=== PATIENT | female | born 1985 | race Two or more races ===

== ENCOUNTER 2016-12-10 18:55 | Inpatient (IN) | payer OTHER ==
--- NOTE | 2016-12-10 19:21 | EDPHY ---
H & P Stated Complaint: CP Time Seen by Provider: 12/10/16 19:09 HPI/ROS: CHIEF COMPLAINT: Chest pain HISTORY OF PRESENT ILLNESS: The patient presents to the emergency department with complaints of chest pain after a stressful event at work. She reportedly developed symptoms at 4 o'clock which lasted less than 1 hour. She had some slight paresthesias in her left arm. She has no prior history of chest pain. The patient has a history of hypertension or hyperlipidemia. The patient does have a history of borderline diabetes. The patient does report her mother in her 50s of unknown disease. The patient denies any history of exertional chest pain, shortness of breath, asymmetric calf pain or swelling, recent surgery or prolonged immobilization. The patient also specifically denies pleuritic chest pain. REVIEW OF SYSTEMS: A comprehensive 10 point review of systems is otherwise negative aside from elements mentioned in the history of present illness. Source: Patient - Personal History LMP (Females 10-55): 15-21 Days Ago Current Tetanus/Diphtheria Vaccine: Yes Current Tetanus Diphtheria and Acellular Pertussis (TDAP): Yes - Medical/Surgical History Hx Asthma: No Hx Chronic Respiratory Disease: No Hx Diabetes: No Hx Cardiac Disease: No Hx Renal Disease: No Hx Cirrhosis: No Hx Alcoholism: No Hx HIV/AIDS: No Hx Splenectomy or Spleen Trauma: No Other PMH: hypothyroid, c-sectioin - Social History Smoking Status: Never smoked - Physical Exam Exam: General Appearance: Alert, no distress Eyes: Pupils equal and round no pallor or injection ENT, Mouth: Mucous membranes moist Respiratory: There are no retractions, lungs are clear to auscultation Cardiovascular: Regular rate and rhythm Gastrointestinal: Abdomen is soft and nontender, no masses, bowel sounds normal Neurological: A&O, normal motor function, normal sensory exam, normal cranial nerves Skin: Warm and dry, no rashes Musculoskeletal: Neck is supple nontender Extremities: symmetrical, full range of motion Psychiatric: Patient is oriented X 3, there is no agitation Constitutional: Initial Vital Signs Temperature (C) 36.9 C 12/10/16 19:05 Heart Rate 77 12/10/16 19:05 Respiratory Rate 16 12/10/16 19:05 Blood Pressure 127/72 H 12/10/16 19:05 O2 Sat (%) 100 12/10/16 19:05 O2 Delivery Mode Room Air Allergies/Adverse Reactions: No Known Allergies Allergy (Verified 12/10/16 19:03) Home Medications: Medication Instructions Recorded Levothyroxine [Synthroid 112 mcg 112 mcg PO DAILY06 12/10/16 (*)] Medical Decision Making - Diagnostics EKG Interpretation: EKG: Complete interpretation has been separately recorded in the [facility] archive. Summary impression: Sinus rhythm, rate 66 Imaging Results: Imaging Impressions Chest X-Ray 12/10/16 19:39 Impression: The chest is negative for acute cardiopulmonary abnormality. ED Course/Re-evaluation: The patient presents to the ED with chest pain after stressful situation at work. She is currently asymptomatic. The patient has a history of borderline hyperlipidemia and uncertain family medical history surrounding a maternal . The patient is noted to have a normal EKG in the ED. The patient's initial troponin came back indeterminately elevated at 0.137. Given the patient's history of reported early cardiac in a first-degree relative, I do feel she should be admitted to the hospital for observation and further cardiac evaluation. Consultation was made with Dr. Rivera from the hospitalist service who will refer the patient this evening. The patient has remained hemodynamically stable and chest pain-free throughout her stay in the emergency department. Plans for hospital admission discussed with patient through respiratory assistant. Differential Diagnosis: Differential diagnosis considered includes acute coronary syndrome, pericarditis , nonischemic cardiomyopathy, pulmonary embolism - Data Points Laboratory Results: Laboratory Results 12/10/16 20:00 12/10/16 20:00 12/10/16 12/10/16 12/10/16 20:00 20:00 20:00 WBC RBC Hgb Hct MCV MCH MCHC RDW Plt Count MPV Neut % (Auto) Lymph % (Auto) [place] % (Auto) Eos % (Auto) Baso % (Auto) Nucleat RBC Rel Count Absolute Neuts (auto) Absolute Lymphs (auto) Absolute Monos (auto) Absolute Eos (auto) Absolute Basos (auto) Absolute Nucleated RBC Immature Gran % Immature Gran # D-Dimer 0.30 ug/mLFEU ug/mLFEU (0.00-0.50) Sodium 139 mEq/L mEq/L (134-144) Potassium 3.9 mEq/L mEq/L (3.5-5.2) Chloride 103 mEq/L mEq/L (97-110) Carbon Dioxide 24 mEq/l mEq/l (22-31) Anion Gap 12 mEq/L mEq/L (8-16) BUN 13 mg/dL mg/dL (7-23) Creatinine 0.8 mg/dL mg/dL (0.6-1.0) Estimated GFR > 60 Glucose 86 mg/dL mg/dL (70-100) Calcium 8.9 mg/dL mg/dL (8.5-10.4) Troponin I 0.127 ng/mL H ng/mL (0-0.034) TSH Pending 12/10/16 20:00 WBC 8.16 10^3/uL 10^3/uL (3.80-9.50) RBC 4.79 10^6/uL 10^6/uL (4.18-5.33) Hgb 10.9 g/dL L g/dL (12.6-16.3) Hct 33.9 % L % (38.0-47.0) MCV 70.8 fL L fL (81.5-99.8) MCH 22.8 pg L pg (27.9-34.1) MCHC 32.2 g/dL L g/dL (32.4-36.7) RDW 16.8 % H % (11.5-15.2) Plt Count 342 10^3/uL 10^3/uL (150-400) MPV 9.4 fL fL (8.7-11.7) Neut % (Auto) 67.3 % % (39.3-74.2) Lymph % (Auto) 23.4 % % (15.0-45.0) [place] % (Auto) 6.5 % % (4.5-13.0) Eos % (Auto) 2.1 % % (0.6-7.6) Baso % (Auto) 0.5 % % (0.3-1.7) Nucleat RBC Rel Count 0.0 % % (0.0-0.2) Absolute Neuts (auto) 5.49 10^3/uL 10^3/uL (1.70-6.50) Absolute Lymphs (auto) 1.91 10^3/uL 10^3/uL (1.00-3.00) Absolute Monos (auto) 0.53 10^3/uL 10^3/uL (0.30-0.80) Absolute Eos (auto) 0.17 10^3/uL 10^3/uL (0.03-0.40) Absolute Basos (auto) 0.04 10^3/uL 10^3/uL (0.02-0.10) Absolute Nucleated RBC 0.00 10^3/uL 10^3/uL (0-0.01) Immature Gran % 0.2 % % (0.0-1.1) Immature Gran # 0.02 10^3/uL 10^3/uL (0.00-0.10) D-Dimer Sodium Potassium Chloride Carbon Dioxide Anion Gap BUN Creatinine Estimated GFR Glucose Calcium Troponin I TSH Medications Given: Discontinued Medications Aspirin (Aspirin) 324 mg PO EDNOW ONE Stop: 12/10/16 20:45 Last Admin: 12/10/16 20:50 Dose: 324 mg Departure - Departure Disposition: [facility] ([place], [place]) Inpatient Acute Clinical Impression: Chest pain, Cardiac enzymes elevated Condition: Good
--- NOTE | 2016-12-10 19:27 | CPEKG ---
Heart Rate: 66 RR Interval: 909 P-R Interval: 168 QRSD Interval: 84 QT Interval: 400 QTC Interval: 420 P [place]: 51 QRS [place]: 33 T Wave [place]: 39 EKG Severity - NORMAL ECG - EKG Impression: SINUS RHYTHM Electronically Signed By: Darryl Roy 10-Dec-2016 20:16:29
[2016-12-10 20:10] LABS: % IMMATURE GRANULYOCYTES 0.2 % (0.0-1.1); ABSOLUTE IMMATURE GRANULOCYTES 0.02 10^3/uL (0.00-0.10); ADD DIFF? NO; ADD MORPH? NO; ADD SCAN? NO; ATYPICAL LYMPHOCYTE FLAG 0 (0-99); FRAGMENT RBC FLAG 20 (0-99); HEMATOCRIT 33.9 % (38.0-47.0); HEMOGLOBIN 10.9 g/dL (12.6-16.3); LEFT SHIFT FLG 0 (0-99); LIPEMIA HEMOLYSIS FLAG 80 (0-99); MEAN CELL HEMOGLOBIN 22.8 pg (27.9-34.1); MEAN CELL HEMOGLOBIN CONCENTR. 32.2 g/dL (32.4-36.7); MEAN CELL VOLUME 70.8 fL (81.5-99.8); MEAN PLATELET VOLUME 9.4 fL (8.7-11.7); PLATELET CLUMPS FLAG 10 (0-99); PLATELET COUNT 342 10^3/uL (150-400); RED BLOOD CELL COUNT 4.79 10^6/uL (4.18-5.33); RED CELL DISTRIBUTION WIDTH 16.8 % (11.5-15.2)
[2016-12-10 20:30] LABS: ANION GAP 12 mEq/L (8-16); CALCIUM 8.9 mg/dL (8.5-10.4); CARBON DIOXIDE 24 mEq/l (22-31); CHLORIDE 103 mEq/L (97-110); CREATININE 0.8 mg/dL (0.6-1.0); GLOMERULAR FILTRATION RATE > 60; GLUCOSE 86 mg/dL (70-100); POTASSIUM 3.9 mEq/L (3.5-5.2); SODIUM 139 mEq/L (134-144)
[2016-12-10 20:42] LABS: TROPONIN I 0.127 ng/mL (0-0.034)
[2016-12-10] MEDS ORDERED: ASPIRIN 81 MG CHEWABLE TAB PO ONE (20:44)
[2016-12-10] MEDS ORDERED: ACETAMINOPHEN 325 MG TAB PO PRN (23:18)
[2016-12-10] MEDS ORDERED: ONDANSETRON 4 MG/2 ML VIAL IVP PRN (23:18)
[2016-12-10] MEDS ORDERED: ONDANSETRON DISINTEGRATING 4 MG TAB PO PRN (23:18)
--- NOTE | 2016-12-10 23:43 | PDGENHP ---
History and Physical - Chief Complaint chest pain - History of Present Illness Patient is a 31-year-old female with history of hyperlipidemia, hypothyroidism and prediabetes who presents to the ED with complaint of chest pain. Patient states she was at work around 4 pm today and was having a stressful argument/ discussion with co-worker when she suddenly developed left sided chest heaviness and pain. She described the pain as a dull constant throbbing, associated with palpitations and shortness of breath. Shortly after experiencing pain she also developed numbness and discomfort radiating into her left arm. She denies any nausea or diaphoresis. Patient also denies any recent fevers, chills, headache, dizziness, coughing, congestion, orthopnea, PND , recent travel or lower extremity edema. She has never experienced pain like this in her chest before. She also has never had cardiac workup previously, although she does have a positive family history of her mother dying of an [place] in her 50s. On arrival to the ED patient was afebrile and hemodynamically stable, but was still experiencing pain (total about 2 hours of symptom). Labs revealed normal CBC and BMP, but troponin was elevated at 0.1. EKG showed faint ST depressions laterally and inferior Q-waves no priors to compare. Chest x-ray was unremarkable and D-dimer was negative. She was given full-dose aspirin and admitted to the hospital service for further management. History Information - Allergies/Home Medication List Allergies/Adverse Reactions: No Known Allergies Allergy (Verified 12/10/16 19:03) Home Medications: Levothyroxine [Synthroid 112 mcg (*)] 112 mcg PO DAILY06 12/10/16 [Last Taken ] I have personally reviewed and updated: family history, medical history, social history, surgical history - Past Medical History Additional medical history: hypothyroidism. Hyperlipidemia - Surgical History Additional surgical history: - Family History Additional family history: M: in her 50s from [place] - Social History Smoking Status: Never smoked Alcohol Use: None Drug Use: None Additional social history: Originally from [place], lives in [place] with her young daughter Review of Systems ROS: 10pt was reviewed & negative except for what was stated in HPI & below Physical Exam Temp Pulse Resp BP Pulse Ox 36.6 C 67 18 107/61 100 12/10/16 21:00 12/10/16 21:00 12/10/16 21:00 12/10/16 21:00 12/10/16 21:00 O2 (L/minute) 2 Constitutional: no apparent distress, appears nourished, not in pain Eyes: PERRL, anicteric sclera, EOMI Ears, Nose, Mouth, Throat: moist mucous membranes, hearing normal, ears appear normal, no oral mucosal ulcers Cardiovascular: regular rate and rhythym, no murmur, rub, or gallop, pulses symmetric bilaterally, No JVD, No edema Peripheral Pulses: 2+: dorsalis-pedis (R), dorsalis-pedis (L) Respiratory: no respiratory distress, no rales or rhonchi, clear to auscultation Gastrointestinal: normoactive bowel sounds, soft, non-tender abdomen, no palpable masses, No tenderness, No guarding, No rebound Genitourinary: no bladder fullness, no bladder tenderness Skin: warm, normal color, no rashes or abrasions, no fluctuance, no induration, No mottled Musculoskeletal: full muscle strength, no muscle tenderness, normal joint ROM, no joint effusions Neurologic: AAOx3, sensation intact bilaterally, CN II-XII Intact, No weakness, No numbness Psychiatric: interacting appropriately, not anxious, not encephalopathic, thought process linear Lab Data & Imaging Review 12/10/16 20:00 12/10/16 20:00 WBC 8.16 10^3/uL (3.80-9.50) 12/10/16 20:00 RBC 4.79 10^6/uL (4.18-5.33) 12/10/16 20:00 Hgb 10.9 g/dL (12.6-16.3) L 12/10/16 20:00 Hct 33.9 % (38.0-47.0) L 12/10/16 20:00 MCV 70.8 fL (81.5-99.8) L 12/10/16 20:00 MCH 22.8 pg (27.9-34.1) L 12/10/16 20:00 MCHC 32.2 g/dL (32.4-36.7) L 12/10/16 20:00 RDW 16.8 % (11.5-15.2) H 12/10/16 20:00 Plt Count 342 10^3/uL (150-400) 12/10/16 20:00 MPV 9.4 fL (8.7-11.7) 12/10/16 20:00 Neut % (Auto) 67.3 % (39.3-74.2) 12/10/16 20:00 Lymph % (Auto) 23.4 % (15.0-45.0) 12/10/16 20:00 [place] % (Auto) 6.5 % (4.5-13.0) 12/10/16 20:00 Eos % (Auto) 2.1 % (0.6-7.6) 12/10/16 20:00 Baso % (Auto) 0.5 % (0.3-1.7) 12/10/16 20:00 Nucleat RBC Rel Count 0.0 % (0.0-0.2) 12/10/16 20:00 Absolute Neuts (auto) 5.49 10^3/uL (1.70-6.50) 12/10/16 20:00 Absolute Lymphs (auto) 1.91 10^3/uL (1.00-3.00) 12/10/16 20:00 Absolute Monos (auto) 0.53 10^3/uL (0.30-0.80) 12/10/16 20:00 Absolute Eos (auto) 0.17 10^3/uL (0.03-0.40) 12/10/16 20:00 Absolute Basos (auto) 0.04 10^3/uL (0.02-0.10) 12/10/16 20:00 Absolute Nucleated RBC 0.00 10^3/uL (0-0.01) 12/10/16 20:00 Immature Gran % 0.2 % (0.0-1.1) 12/10/16 20:00 Immature Gran # 0.02 10^3/uL (0.00-0.10) 12/10/16 20:00 D-Dimer 0.30 ug/mLFEU (0.00-0.50) 12/10/16 20:00 Sodium 139 mEq/L (134-144) 12/10/16 20:00 Potassium 3.9 mEq/L (3.5-5.2) 12/10/16 20:00 Chloride 103 mEq/L (97-110) 12/10/16 20:00 Carbon Dioxide 24 mEq/l (22-31) 12/10/16 20:00 Anion Gap 12 mEq/L (8-16) 12/10/16 20:00 BUN 13 mg/dL (7-23) 12/10/16 20:00 Creatinine 0.8 mg/dL (0.6-1.0) 12/10/16 20:00 Estimated GFR > 60 12/10/16 20:00 Glucose 86 mg/dL (70-100) 12/10/16 20:00 Calcium 8.9 mg/dL (8.5-10.4) 12/10/16 20:00 Troponin I 0.127 ng/mL (0-0.034) H 12/10/16 20:00 Visualized and Interpreted Chest x-ray results: Yes Chest X-Ray results: no infiltrate, normal Visualized and Interpreted EKG results: Yes EKG Interpretation: Positive for: normal sinsus rhythm, ST depression (slight st depressions in v4-v5, q wave in III, aVF) Assessment & Plan Assessment: Patient is a 31-year-old female with history of hyper hypothyroidism, hyperlipidemia and positive premature cardiac family history presents to the ED with complaint chest pain radiating into her left arm. Initial ED evaluation reveals elevated troponin at 0.[address] depressions in her EKG. Plan: # NSTEMI Patient presented to the ED with a episode of distinct left-sided chest pain, radiating into her left arm, associated with dyspnea and palpitations. Given this description of symptoms, concern for ACS high. Initial EKG shows Q-waves in inferior leads and faint ST depressions laterally. This is consistent with an NSTEMI. She was given a full-dose aspirin, as well as a dose of therapeutic Lovenox. Will follow serial EKGs, troponins q6, check TTE in consult Cardiology in a.m. will also check TSH, lipid panel, initiate aspirin and statin therapy. # hypothyroidism Check TSH and resume home Synthroid dose. # hyperlipidemia Check lipid panel and initiate statin. # dispo: Admit to observation status for chest pain and mildly elevated troponin # gen NPO DVT Ppx: obs, low risk Full code
--- NOTE | 2016-12-11 00:57 | CPEKG ---
Heart Rate: 63 RR Interval: 952 P-R Interval: 180 QRSD Interval: 84 QT Interval: 432 QTC Interval: 443 P [place]: 45 QRS [place]: 55 T Wave [place]: 63 EKG Severity - NORMAL ECG - EKG Impression: SINUS RHYTHM Electronically Signed By: Pepe Marcus 12-Dec-2016 08:02:05
[2016-12-11] MEDS: ENOXAPARIN 60 MG/0.6 ML SYR SC SCH ×2 (01:03→15:08)
[2016-12-11 06:56] LABS: % IMMATURE GRANULYOCYTES 0.1 % (0.0-1.1); ABSOLUTE IMMATURE GRANULOCYTES 0.01 10^3/uL (0.00-0.10); ADD DIFF? NO; ADD MORPH? NO; ADD SCAN? NO; ATYPICAL LYMPHOCYTE FLAG 10 (0-99); FRAGMENT RBC FLAG 20 (0-99); HEMATOCRIT 35.4 % (38.0-47.0); HEMOGLOBIN 11.2 g/dL (12.6-16.3); LEFT SHIFT FLG 0 (0-99); LIPEMIA HEMOLYSIS FLAG 80 (0-99); MEAN CELL HEMOGLOBIN 22.6 pg (27.9-34.1); MEAN CELL HEMOGLOBIN CONCENTR. 31.6 g/dL (32.4-36.7); MEAN CELL VOLUME 71.5 fL (81.5-99.8); MEAN PLATELET VOLUME 9.8 fL (8.7-11.7); PLATELET CLUMPS FLAG 10 (0-99); PLATELET COUNT 343 10^3/uL (150-400); RED BLOOD CELL COUNT 4.95 10^6/uL (4.18-5.33); RED CELL DISTRIBUTION WIDTH 17.1 % (11.5-15.2)
[2016-12-11 07:05] LABS: INR 1.01 (0.83-1.16); PROTIME(PATIENT) 13.2 SEC (12.0-15.0)
[2016-12-11 07:06] LABS: APTT 28.8 SEC (23.0-38.0)
[2016-12-11 07:07] LABS: ANION GAP 9 mEq/L (8-16); CALCIUM 8.9 mg/dL (8.5-10.4); CARBON DIOXIDE 26 mEq/l (22-31); CHLORIDE 105 mEq/L (97-110); CHOLESTEROL 214 mg/dL (140-200); CHOLESTEROL/HDL RATIO 6.69 RATIO (1.00-4.44); CREATININE 0.7 mg/dL (0.6-1.0); GLOMERULAR FILTRATION RATE > 60; GLUCOSE 86 mg/dL (70-100); HIGH DENSITY LIPOPROTEIN 32 mg/dL (40-80); LDL/HDL RATIO 4.66 RATIO (1.00-3.22); LOW DENSITY LIPOPROTEIN 149 mg/dL (70-100); MAGNESIUM 2.3 mg/dL (1.6-2.3); NON-HIGH DENSITY LIPOPROTEIN 182 mg/dL (90-129); POTASSIUM 4.1 mEq/L (3.5-5.2); SODIUM 140 mEq/L (134-144); TRIGLYCERIDE 169 mg/dL (35-135); VERY LOW DENSITY LIPOPROTEINS 33 mg/dL (8-25)
--- NOTE | 2016-12-11 10:11 | ECHO ---
[id number] + + [address] : : [place] [address] : : [phone] + + Adult Echocardiographic Report + + :Name: DAIANADWAYNE HOLLAND SOLEDADStudy Date: 12/11/2016 08:39 AM : : Hospital Admission Number: [id number] ient Location: ER: :: 1985 Gender: Female Johann ght: 59 in : :Age: 31 yrs Race: [facility] ght: 147 lb : :Reason For Study: Eval LV Fx : : BSA : 1.6 meters2 : :History: Chest pain, Positive Troponins : + + MMode/2D Measurements \T\ Calculations IVSd: 0.81 cm LVIDd: 4.1 cm FS: 37.5 % Ao root diam: 2.6 cm LVPWd: 0.92 cm LVIDs: 2.5 cm EDV(Teich): 73.4 ml ACS: 1.8 cm ESV(Teich): 23.4 ml LA dimension: 2.5 cm EF(Teich): 68.0 % Normal Measurement Values: + + :LVIDd (3.5-5.7cm) IVSd (0.6-1.1cm) LVPWd (0.6-1.1cm) Aortic Root (2.0-3.7cm)Left Atrium (1.5-4.0cm): :LV Vol(d) (76-115ml) LV Vol(s) (29-48ml) Ejec Fraction (50-65%)PV [place] (0.6- 1.2m/s) TV [place] (0.4-1.0m/s) : :MV E [place] (0.8-1.0m/s)MV A [place] (0.3-1.0m/s)LVOT [place] (0.7-1.2m/s) Asc Ao Len[place] ( 0.9-1.8m/s) : + + Doppler Measurements \T\ Calculations MV E max lencho: Ao V2 max: LV V1 max: PA V2 max: 89.3 cm/sec 114.0 cm/sec 85.9 cm/sec 80.1 cm/sec MV A max lencho: Ao max P.2 mmHgLV V1 max PG: PA max P.5 cm/sec 3.0 mmHg 2.6 mmHg MV E/A: 2.3 TR max lencho: 239.0 cm/sec TR max P.8 mmHg RAP systole: 5.0 mmHg RVSP(TR): 27.8 mmHg Left Ventricle The left ventricle is normal in size. There is normal left ventricular wall thickness. The left ventricular ejection fraction is normal. Ejection Fraction = 68%. There are no obvious left ventricular wall motion abnormalities. Right Ventricle The right ventricle is normal in size and function. Atria The left atrial size is normal. Right atrial size is normal. Mitral Valve The mitral valve is normal in structure and function. There is no mitral valve stenosis. There is no mitral regurgitation noted. Tricuspid Valve Normal tricuspid valve. There is trace tricuspid regurgitation. Right ventricular systolic pressure is normal. Aortic Valve The aortic valve is normal in structure and function. The aortic valve is trileaflet. There is no aortic stenosis. There is no aortic insufficiency. Pulmonic Valve The pulmonic valve is normal in structure and function. There is no pulmonic valvular regurgitation. Great Vessels The aortic root is normal size. Pericardium/Pleural There is no pericardial effusion. Conclusion A complete two-dimensional transthoracic echocardiogram was performed (2D, M-mode, Doppler and color flow Doppler). The left ventricular ejection fraction is normal. Ejection Fraction = 68%. There are no obvious left ventricular wall motion abnormalities. The left atrial size is normal. Right atrial size is normal. The mitral valve is normal in structure and function. There is trace tricuspid regurgitation. Right ventricular systolic pressure is normal. The aortic valve is normal in structure and function. The aortic valve is trileaflet. There is no pericardial effusion. Final Reading Physician: Leo Shah signed on 12/11/2016 10:10 AM Ordering Physician: Estee Anderson Performed By: Avery Abarca, CS
--- NOTE | 2016-12-11 10:20 | HOSPPROG ---
Hospitalist Progress Note Assessment/Plan: # CP/elev trop - discussed with cards - anticipate cath today - received asa and lovenox last night - on lipitor for LDL 149 # microcytic anemia - check Fe studies Subjective: CP better, still slightly bothersome Objective: Vital Signs Temp Pulse Resp BP Pulse Ox 37 C 84 18 96/58 L 95 12/11/16 04:00 12/11/16 04:00 12/11/16 04:00 12/11/16 04:00 12/11/16 04:00 Laboratory Results 12/11/16 06:45 12/11/16 06:45 PT 13.2 SEC (12.0-15.0) 12/11/16 06:45 INR 1.01 (0.83-1.16) 12/11/16 06:45 discussed with Archie - possible cath ecg personally reviewed echo and cxr reviewed - Physical Exam Constitutional: no apparent distress, appears nourished Cardiovascular: regular rate and rhythym, no murmur, rub, or gallop Respiratory: no respiratory distress, no rales or rhonchi, clear to auscultation Gastrointestinal: normoactive bowel sounds, soft, non-tender abdomen, no palpable masses ICD10 Worksheet Patient Problems: Problems Problem Status Onset Chest pain Acute Cardiac enzymes elevated Acute
[2016-12-11 10:50] LABS: % SATURATION 5 % (20-55); TOTAL IRON BINDING CAPACITY 455 ug/dL (260-490)
[2016-12-11] MEDS ORDERED: diphenhydrAMINE 25 MG CAP PO ONE ×2 (10:59→11:47)
[2016-12-11] MEDS ORDERED: TEMAZEPAM 15 MG CAP PO PRN (10:59)
[2016-12-11] MEDS ORDERED: NITROGLYCERIN 0.4 MG BTL SL PRN (10:59)
[2016-12-11] MEDS ORDERED: DIAZEPAM 5 MG TAB PO ONE (10:59)
[2016-12-11] MEDS ORDERED: ASPIRIN EC 325 MG TAB PO ONE ×2 (10:59→11:47)
[2016-12-11] MEDS ORDERED: NS 1,000 ML IV SCH (11:00)
[2016-12-11 11:16] LABS: FERRITIN - BCH 6.7 ng/mL (6.2-264.0)
[2016-12-11] MEDS ORDERED: LIDOCAINE 1% 300 MG/30 ML SDV ONE (11:34)
[2016-12-11] MEDS ORDERED: IOPAMIDOL (ISOVUE-370) 150 ML BTL IV ONE (11:35)
[2016-12-11] MEDS ORDERED: MIDAZOLAM 2 MG/2 ML VIAL ONE (11:35)
[2016-12-11] MEDS ORDERED: fentaNYL 100 MCG/2 ML INJ ONE (11:35)
[2016-12-11] MEDS ORDERED: HEPARIN 10,000 UNIT/10 ML MDV ONE (11:35)
[2016-12-11] MEDS ORDERED: VERAPAMIL 5 MG/2 ML VIAL ONE (11:35)
[2016-12-11] MEDS ORDERED: FAMOTIDINE 20 MG TAB ONE (11:47)
[2016-12-11] MEDS ORDERED: DIAZEPAM 5 MG TAB ONE (11:48)
[2016-12-11] MEDS ORDERED: ATROPINE SULFATE 1 MG/10 ML SYR IVP PRN (13:03)
--- NOTE | 2016-12-11 13:03 | PDDXCAT ---
Diagnostic Cath Note - . Date: 12/11/16 Product Craftsman: Pancho Indication: other (Chest pain with elevated troponins) - Procedure Access: right groin Procedure: left heart catheterization, coronary angiography, left ventriculogram - Materials Left Heart Cath size: 6F Left Heart Cath materials: standard multipack (JL4, JR4, pigtail) - Findings-Left Heart Catheterization LM: Normal LAD: Normal LCX: Normal RCA: Dominant: Normal EDP: 12 mm of mercury LVEF: 65% Wall motion: Normal Complications: Inability to access right radial artery Estimated blood loss: <50ml Closure method: manual pressure Assessment: 1. Angiographically normal coronary arteries. 2. Normal left ventricular systolic function with normal filling pressures. 3. Chest pain syndrome associated with elevated troponins Plan: Query Takutsubo's CM versus early markos-pericarditis. NSAIDS. Clinical follow up. Patient Problems: Problems Problem Status Onset Chest pain Acute Cardiac enzymes elevated Acute
[2016-12-11] MEDS ORDERED: ATROPINE SULFATE 1 MG/10 ML SYR ONE (13:17)
--- NOTE | 2016-12-11 13:19 | GCON ---
[f rep st] CONSULTATION CARDIOLOGY CONSULTATION. REASON FOR CONSULTATION: Chest pressure, elevated troponin levels. HISTORY OF PRESENT ILLNESS: The patient is a 31-year-old female. She is Citizen [place]-speaking only, she is being seen with a professional fiscal assistant. She reports, last evening, having chest pre ssure, starting midsternal, reporting it as a tight belt sensation over the left arm, with radiation into her left arm, she reported starting around 6 o'clock last evening, reporting she was at work. Her bailer tenders supervisor gave an aspirin. She rested for a few hours with no relief in symptoms. At that po int, she was encouraged by her bailer tenders supervisor and brought to [facility] for further evalua tion. On arrival, patient reports that she did receive a sublingual nitroglycerin, which had stoppe d the chest pressure, but she continues to have some mild tingling in her left arm. Initial electro cardiogram done in the ED did show sinus rhythm, normal axis, with nonspecific Q-waves in inferior l ochoa, potentially mild ST elevation of less than a millimeter in inferior leads. She had a troponin level drawn, which initially came back at 0.127. D-dimer was done, which was 0.30, within normal l imits. She has been remaining on telemetry, waiting for a PCU bed since overnight. She has had cyc le troponins, with most recent one done at 6:45 this morning at 0.140. She informs me that this is her 1st real experience of midsternal chest pressure. She has had tightness in the past over the year and noticed over the last few weeks some dyspnea on exertion when climbing stairs. She repo rts no recent fevers, chills, or night sweats. Denies any significant past cardiac history. Report s no palpitations, orthopnea, PND, near-syncope, or syncopal events. Denies any symptoms suggestive of TIA or CVA. She reports she works 2 jobs but lives somewhat of a sedentary lifestyle. As for c ardiac risk factors, patient reports no history of hypertension. She is noted to have hyperlipidemi a with fasting lipid panel showing LDL of 149 this morning. She denies any peripheral vascular dise ase, no history of smoking, has been told by her PCP that she is prediabetic, and does report a sign ificant family history of heart disease, reporting mother started having heart problems in her early 40s and of a cardiac arrest in her early 50s. PAST MEDICAL HISTORY: 1. Hypothyroidism. 2. Hyperlipidemia. 3. Prediabetes. SURGICAL HISTORY: . FAMILY HISTORY: As stated above. Patient reports mother started having heart problems in her early 40s, of what was assumed a myocardial infarction in her early 50s. 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 She is not . She has 1 ch ild who is a daughter, who is healthy and well. She denies any smoking history, denies any alcohol use, denies any illicit drug use. She is originally from [place]. ALLERGIES: No known drug allergies. MEDICATIONS: At home, Synthroid 112 mcg p.o. daily. REVIEW OF SYSTEMS: A 10-point review of systems done on this patient, all negative except as mentjerel benson above. PHYSICAL EXAMINATION: GENERAL APPEARANCE: A short-statured, mildly overweight, female. S he is alert and oriented to person, place, time, and situation. Appears to be under no acute distre ss at this time. CURRENT VITAL SIGNS: Blood pressure 96/58; heart rate is 84, sinus rhythm on the monitor; respirations are 18, saturating 95% on room air; temperature of 37.2 degrees Celsius. HEEN T: Head is normocephalic. Lips and tongue are pink and moist with no signs of cyanosis. Conjuncti vae pink. NECK: Trachea is midline, +2 carotid pulses bilateral. No auscultated bruits. No jugul ar vein distention. RESPIRATORY: Lungs clear to auscultation. No rhonchi, rales, or wheezes. No accessory muscle use. No intercostal muscle retraction noted. CARDIAC: Regular rate, regular rhyt hm, S1, S2. No S3, S4, gallops, rubs or murmur noted. ABDOMEN: Soft, nontender, bowel sounds x4 q uadrants, no organomegaly, no palpable masses. SKIN: [place], warm, dry, no cyanosis, no clubbing, no peripheral edema. VASCULAR: +2 carotids bilateral, +2 radials bilateral, +2 dorsal pedal and post erior tibial pulses bilateral. LABORATORY STUDIES: Laboratory studies drawn today showed white blood cell count of 7.59, hemoglobi n 11.2, hematocrit of 35.4, platelet count of 343. INR of 1.01. Sodium 140, potassium 4.1, chlorid e 105, CO2 26, BUN 12, creatinine 0.7, glucose 86. Calcium 8.9. Magnesium 2.3. Triglycerides 169, total cholesterol 214, LDL 149, HDL 32. TSH on admission was 0.614. D-dimer on admission was 0.30 . Troponin on admission was 0.127, 2nd measurement done was 0.119, and the one done this morning at 6:45 was 0.140. STUDIES: Electrocardiogram this morning shows sinus rhythm, noted Q-waves in lead III and AVF, with maybe minimal ST elevation. Chest x-ray done on admission showing no acute cardiopulmonary process . Patient did have an echocardiogram done showing LV ejection fraction is normal, with EF at 68%, n o obvious left ventricular wall-motion abnormalities. Left atrium and right atrium sizes are normal . Trace TR, RVSP within normal limits, no pericardial effusion. ASSESSMENT/PLAN: 1. Chest pressure: Patient noted to have episode of chest pressure with radiation into her left ar m, reporting mild shortness of breath with it. Has noted occasional chest pressure over the last ye ar and a half and some dyspnea on exertion on climbing stairs. Mild abnormal electrocardiogram, as mentioned above. Echocardiogram showing normal LV wall motion, with EF of 68%. Patient with noted flat troponin levels with most recent at 0.14. She has significant cardiac risk factors that includ e hyperlipidemia, prediabetes, and significant family history of coronary artery disease at a young age. At this time, after discussing with Dr. Deleon, it is felt best that, due to patient's still having left arm numbness, and mildly elevated troponins, that patient be further evaluated for card iac ischemia by undergoing coronary angiogram. She has been started on aspirin therapy. She has be en n.p.o. We will have her be taken to the CVC, prepped for procedure. Risks and benefits were exp lained to the patient, and she is agreeable to proceed. Patient will be given another aspirin now. 2. Hyperlipidemia: Patient noted to have significant LDL greater than 140. She has been started o n atorvastatin by the hospitalist services, and I agree with this. 3. Hypothyroidism: Patient with noted history of hypothyroidism. She is currently on Synthroid, c ontinue to be managed by hospitalist services. Thank you for this consultation. We will be glad to follow along with you. Further recommendations will come post catheterization. /[id number]/MODL
[2016-12-11 13:56] LABS: SEDIMENTATION RATE 23 MM/HR (0-20)
[2016-12-11 15:07] LABS: CREATINE KINASE-MB FRACTION 1.97 ng/mL (0-3.19)
[2016-12-11] MEDS: ATORVASTATIN CALCIUM 40 MG TAB PO SCH (15:55)
[2016-12-11] MEDS: INDOMETHACIN 25 MG CAP PO SCH (16:56)
[2016-12-11] MEDS: COLCHICINE 0.6 MG CAP/TAB PO SCH (21:32)
[2016-12-12 04:41] LABS: % IMMATURE GRANULYOCYTES 0.3 % (0.0-1.1); ABSOLUTE IMMATURE GRANULOCYTES 0.02 10^3/uL (0.00-0.10); ADD DIFF? NO; ADD MORPH? NO; ADD SCAN? NO; ATYPICAL LYMPHOCYTE FLAG 0 (0-99); FRAGMENT RBC FLAG 0 (0-99); HEMATOCRIT 33.8 % (38.0-47.0); HEMOGLOBIN 10.5 g/dL (12.6-16.3); LEFT SHIFT FLG 0 (0-99); LIPEMIA HEMOLYSIS FLAG 80 (0-99); MEAN CELL HEMOGLOBIN 22.3 pg (27.9-34.1); MEAN CELL HEMOGLOBIN CONCENTR. 31.1 g/dL (32.4-36.7); MEAN CELL VOLUME 71.8 fL (81.5-99.8); MEAN PLATELET VOLUME 9.6 fL (8.7-11.7); PLATELET CLUMPS FLAG 0 (0-99); PLATELET COUNT 323 10^3/uL (150-400); RED BLOOD CELL COUNT 4.71 10^6/uL (4.18-5.33); RED CELL DISTRIBUTION WIDTH 16.9 % (11.5-15.2)
[2016-12-12 05:06] LABS: ANION GAP 5 mEq/L (8-16); CALCIUM 8.6 mg/dL (8.5-10.4); CARBON DIOXIDE 24 mEq/l (22-31); CHLORIDE 106 mEq/L (97-110); CREATININE 0.6 mg/dL (0.6-1.0); GLOMERULAR FILTRATION RATE > 60; GLUCOSE 90 mg/dL (70-100); POTASSIUM 4.2 mEq/L (3.5-5.2); SODIUM 135 mEq/L (134-144)
[2016-12-12] MEDS: LEVOTHYROXINE 112 MCG TAB PO SCH (06:10)
[2016-12-12] MEDS: COLCHICINE 0.6 MG CAP/TAB PO SCH ×2 (09:40→20:20)
[2016-12-12] MEDS: INDOMETHACIN 25 MG CAP PO SCH ×3 (09:40→18:25)
[2016-12-12] MEDS: ATORVASTATIN CALCIUM 40 MG TAB PO SCH (09:41)
--- NOTE | 2016-12-12 10:26 | PDCARPN ---
Cardiology Progress Note Chief Complaint: cp/elevated trop Assessment/Plan: Assessment: 31F PMH hypoT, prediabetes, obesity (BMI 30), here with chest pressure starting day of admission. Had mildly elevated troponin and proceeded to [facility]. #. myopericarditis: normal cors and no WMA on echo treat with NSAIDs and started on Colchicine will need 1 week office follow-up due to ongoing pain, will give one time dose of Toradol prior to d/c Plan: 12/12/16 10:22 12/12/16 10:26 Subjective: Reports ongoing sharp pain that prevents her from taking a deep breath. Reviewed/Discussed With: hospitalist Objective: Vital Signs (8 Hrs) Temp Pulse Resp BP Pulse Ox 12/12/16 07:19 97.7 F 54 L 17 88/56 L 94 12/12/16 04:00 98.0 F 64 18 96/52 L 95 Intake/Output (24 Hrs) 12/11/16 12/12/16 12/13/16 05:59 05:59 05:59 Intake Total 1690 Balance 1690 Intake: Oral (ml) 540 IV Infused (ml) 1150 Ns 1,000 ml @ 100 mls/hr 150 IV CONT SUJATA Rx#: [id number] Other: Weight 66.678 kg Number of Voids 4 Toilet 1 Result Diagrams: 12/12/16 04:24 12/12/16 04:24 Cardiac Labs: Cardiac Lab Results (72 Hrs) 12/11/16 12/11/16 12/11/16 13:40 06:45 00:09 CK-MB (CK-2) Fraction 1.97 Troponin I 0.140 H 0.119 H EKG: reviewed and personally interpreted NSR Telemetry: reviewed SR Echocardiogram: reviewed - Physical Exam Constitutional: healthy appearing, no apparent distress Eyes: PERRL Ears, Nose, Mouth, Throat: moist mucous membranes Cardiovascular: regular rate and rhythm, no murmurs Gastrointestinal: normoactive bowel sounds, no tenderness Skin: no rashes, no abrasions ICD10 Worksheet Patient Problems: Problems Problem Status Onset Chest pain Acute Cardiac enzymes elevated Acute
[2016-12-12] MEDS ORDERED: KETOROLAC 30 MG/1 ML SDV IVP ONE (10:28)
[2016-12-12] MEDS ORDERED: IOPAMIDOL (ISOVUE-300) 100 ML BTL ONE (17:58)
--- NOTE | 2016-12-12 18:08 | GDS ---
[f rep st] DISCHARGE SUMMARY DISCHARGE DIAGNOSES: 1. Acute chest pain thought secondary to myopericarditis. 2. Hypothyroidism. 3. Obesity. 4. Prediabetes. HISTORY OF PRESENT ILLNESS: A 31-year-old female, who presents on 12/10/2016, with complaints of ch est pain. For details of patient's initial presentation, please see the history and physical dated 12/10/2016. CONSULTATIVE SERVICES: Cardiology. PROCEDURES: On 12/11/2016, patient underwent left heart catheterization with angiography and a vent riculogram. Patient had normal coronary arteries and normal LV systolic function. HOSPITAL COURSE BY ISSUE: 1. Acute chest pain. Presumption is the patient is experiencing myopericarditis as an explanation for both her pain and troponin excursion. Patient is being initiated on indomethacin and colchicine and will continue these at disposition. She will follow with the legal service specialist in 1 week's time. 2. Hypothyroidism. Patient was continued on her Synthroid therapy. PENDING STUDIES: At the time of this dictation are none. FOLLOWUP APPOINTMENTS: Include with Cardiology in 1 week for post disposition followup. TIME SPENT: I spent greater than 30 minutes in the planning and coordination of this discharge. /[id number]/MODL
[2016-12-12] MEDS ORDERED: HYDROCODONE/APAP 5/325 TAB PO PRN (18:44)
[2016-12-13] MEDS: LEVOTHYROXINE 112 MCG TAB PO SCH (06:24)
[2016-12-13 07:38] VITALS: BP 100/59; PULSE 58; RESP 17; TEMP 97.9; O2SAT 98
[2016-12-13] MEDS: COLCHICINE 0.6 MG CAP/TAB PO SCH (07:47)
[2016-12-13] MEDS: INDOMETHACIN 25 MG CAP PO SCH (07:47)
[2016-12-13] MEDS: ATORVASTATIN CALCIUM 40 MG TAB PO SCH (07:47)
[2016-12-13] MEDS ORDERED: PANTOPRAZOLE SODIUM 40 MG TAB PO ONE (08:47)
[2016-12-13] MEDS ORDERED: MAGNESIUM HYDROXIDE 30 ML UDCUP PO PRN (08:47)
--- NOTE | 2016-12-13 11:09 | GDS ---
[f rep st] DISCHARGE SUMMARY ADMISSION DIAGNOSES: 1. Chest pain. 2. Hypothyroidism. 3. Obesity. 4. Pre-diabetes. 5. Hyperlipidemia. DISCHARGE DIAGNOSES: 1. Acute chest pain thought secondary to myocarditis. 2. Hypothyroidism. 3. Obesity. 4. Pre-diabetes. PROCEDURES DONE DURING HOSPITALIZATION: 1. Electrocardiogram. 2. Chest x-ray. 3. Diagnostic coronary catheterization. 4. Abdominal CTA. BRIEF HISTORY: Please see H and P. The patient is a 31-year-old female reporting episodes of midst ernal chest pressure with radiation down her left arm. She reports over the last few months more fa tigue symptoms. She does have a significant family history of early-onset coronary artery disease, with mother first having heart problems in her 40s and dying in her early 50s. She has also had car diac risk factors of pre-diabetes and hyperlipidemia. Due to these symptoms, she came to the emerge ncy department for further evaluation. HOSPITAL COURSE: Once admitted to the emergency department, initial electrocardiogram did show some mild sub-millimeter ST elevation in inferior leads. She was noted to have an elevated troponin patrick t was initially at 0.127, which after the third time, did peak at 0.140. Due to her significant fam vickie history, ongoing chest pressure, it was decided that she go to the coronary catheterization lab on December 11, in which Dr. Deleon performed a diagnostic heart catheterization on her, which showed n ormal coronary arteries, EDP of 12 mmHg, LVEF of 65%. She was taken back to the PCU for observation , still reporting ongoing pain. ESR was mildly elevated at 23. C-reactive protein was ordered and noted to be elevated at 12.5. She had been started on indomethacin and colchicine, with the presump tion that her acute chest pain was secondary to myopericarditis. She had been tolerating everything well, up and walking the floor with no problems. She was prepped to be discharged last evening, in which she reported significant pain at her right groin site, catheter insertion site of her coronar y angiogram. A stat CTA of the pelvis was done, which showed no signs of pseudoaneurysm, hematoma, or retroperitoneal bleed. She was treated overnight with pain medications and reports today that sh erik is having no further problems with her pain. She reports no further episodes of chest pain, but o ngoing fatigue. PHYSICAL EXAMINATION: Done today. GENERAL APPEARANCE: Short, mildly obese female. She i s alert and oriented to person, place, time, and situation. She is [place]-speaking only and is see n with a professional diplomatic interpreter/translator. CURRENT VITAL SIGNS: Blood pressure of 100/59, heart rate of 58 , sinus rhythm on the monitor. Respirations 17, saturating 98% on room air. Temperature is 36.6 de grees Celsius. HEENT: Head is normocephalic. Lips are pink and moist, with no signs of cyanosis. Conjunctivae pink. NECK: Trachea is midline, +2 carotid pulses bilateral. No auscultated bruits, no jugular vein distention. RESPIRATORY: Lungs clear to auscultation. No rhonchi, rales or wheez es, no accessory muscle use, no intercostal muscle retraction noted. CARDIAC: Regular rate, regula r rhythm, S1, S2, no S3, S4, gallops, rubs or murmur noted. ABDOMEN: Soft, nontender, bowel sounds x4 quadrants. No organomegaly. No palpable masses. SKIN: [place], warm, dry, no cyanosis, no clubb ing, no peripheral edema. Groin site, catheter insertion site, right groin, no redness, swelling, dr ainage, ecchymosis, or hematoma. No auscultated bruit over site. VASCULAR: +2 carotids bilateral, +2 radials bilateral, +2 dorsal pedal and posterior tibial pulses bilateral. LABORATORY DATA: Laboratory studies drawn on December 11 showed WBC of 7.59, hemoglobin 11.2, hematocrit 35.4, platelet count of 342, INR 1.01. Sodium 140, potassium 4.1, chloride 105, BUN 12, creatinine 0.7, glucose 86, calcium 8.9, magnesium 2.3. The patient was noted to have ESR on date of admissio n, 12/10, of 23, D-dimer of 0.30. Troponin levels as mentioned above. Fasting lipid panel done on December 11 showed triglycerides 169, total cholesterol of 214, LDL 149, HDL 32. C-reactive protein draw n on December 11 was 12.5. STUDIES: Diagnostic coronary catheterization as mentioned above. Chest x-ray done on December 10 showed no acute cardiopulmonary process. Electrocardiogram done on December 11 showed sinus rhythm, normal axi s, sub-millimeter ST elevation in leads III and aVF. Echocardiogram done on December 10, 2016 showed LVE F normal at 68%, no obvious left ventricular wall motion abnormalities, LA normal size, RA normal si ze. Mitral valve is normal structure and function. Trace TR, RVSP, normal aortic valve, normal siz e and structure. No pericardial effusion. DISCHARGE DISPOSITION: Patient will be discharged home in stable condition. She is under activity restrictions of no strenuous activity for the next 2 weeks, not with more than 10 pounds on a daily basis for the next week. DISCHARGE MEDICATIONS: Please see discharge med reconciliation sheet: Note, patient will be sent h ome on home dose of lisinopril at 112 mcg p.o. daily. She has been started on indomethacin 25 mg p. o. t.i.d. with meals. She has also been started on colchicine at 0.6 mg p.o. b.i.d., and due to johanna ng on a nonsteroidal anti-inflammatory, she has been started on Protonix 40 mg p.o. daily. DISCHARGE INSTRUCTIONS: Post cardiac catheterization discharge instructions went over with the ronaldo ent, also myocarditis/pericarditis instructions went over with the patient. She has been told to st ay medication compliant. We will arrange for her to have a followup office visit in less than a wee k at our office. She has been told that if any problems or concerns post discharge, she is to notif y our office or return to the hospital. At the time of instruction, patient verbalizes understandin g of all instructions with diplomatic interpreter/translator. Total time spent on discharge greater than 30 minutes. /[id number]/MODL
== END 2016-12-13 11:18 | disposition home or self-care (01) | DRG 287 ==
LOC: F2W 12-11 15:29 → OBSVTOIN 12-11 18:03
PROVIDERS: ADMIT Internal Medicine; ATTEND Hospitalist
PROC: B2161ZZ Fluoroscopy of Right and Left Heart using Low Osmolar Contrast (ICD-10-PCS; principal; 2016-12-11)
PROC: B2111ZZ Fluoroscopy of Multiple Coronary Arteries using Low Osmolar Contrast (ICD-10-PCS; principal; 2016-12-11)
PROC: 4A023N7 Measurement of Cardiac Sampling and Pressure, Left Heart, Percutaneous Approach (ICD-10-PCS; principal; 2016-12-11)
DX: I31.9 Disease of pericardium, unspecified (principal); R73.03 Prediabetes; I10 Essential (primary) hypertension; E78.5 Hyperlipidemia, unspecified; D50.9 Iron deficiency anemia, unspecified; E03.9 Hypothyroidism, unspecified; E66.9 Obesity, unspecified; Z68.30 Body mass index [BMI] 30.0-30.9, adult; Z82.41 Family history of sudden cardiac death
CPT/HCPCS: G0378; J0461; J1644; J1650; J1885; J2250; J2405; J3010; Q9967